=== PATIENT | male | born 2000 | race Caucasian/White ===

== ENCOUNTER 2022-01-31 16:25 | Emergency (ER) | payer MEDICAID ==
[~2022-01-31] VITALS: Ht 172.7 cm; Wt 75.0 kg
[2022-01-31] MEDS ORDERED: IBUPROFEN 600MG TABLET PO ONE (19:15)
[2022-01-31] MEDS ORDERED: IBUP-2029 MT (20:38)
[2022-01-31] MEDS ORDERED: METH-653 MT (20:38)
[2022-01-31 20:58] VITALS: BP 129/88
== END 2022-01-31 20:59 | disposition home or self-care (01) ==
LOC: ER 16:25
DX: S33.5XXA Sprain of ligaments of lumbar spine, initial encounter (principal); X58.XXXA Exposure to other specified factors, initial encounter; Y93.89 Activity, other specified; Y92.89 Other specified places as the place of occurrence of the external cause; Y99.8 Other external cause status
CPT/HCPCS: 72100; 99283